=== PATIENT | male | born 1955 | race Caucasian/White ===

== ENCOUNTER → 2019-03-30 | Outpatient (CLI) | payer BC | LOC: HYPER 10:10 | DX: L59.8 Other specified disorders of the skin and subcutaneous tissue related to radiation (principal); M87.88 Other osteonecrosis, other site; C01 Malignant neoplasm of base of tongue; M86.9 Osteomyelitis, unspecified; J38.4 Edema of larynx; Z85.810 Personal history of malignant neoplasm of tongue; Z87.891 Personal history of nicotine dependence ==

== ENCOUNTER → 2019-03-31 | Outpatient (CLI) | payer BC, OTHER | LOC: RAD 08:50 | DX: M86.9 Osteomyelitis, unspecified (principal); L59.9 Disorder of the skin and subcutaneous tissue related to radiation, unspecified; M47.814 Spondylosis without myelopathy or radiculopathy, thoracic region ==

== ENCOUNTER → 2019-04-11 | Outpatient (CLI) | payer BC, OTHER | LOC: HYPER 04-10 08:50 | DX: L59.8 Other specified disorders of the skin and subcutaneous tissue related to radiation (principal); M27.2 Inflammatory conditions of jaws; J38.4 Edema of larynx; M86.9 Osteomyelitis, unspecified; Z85.810 Personal history of malignant neoplasm of tongue; Z87.891 Personal history of nicotine dependence; Z85.89 Personal history of malignant neoplasm of other organs and systems; Y84.2 Radiological procedure and radiotherapy as the cause of abnormal reaction of the patient, or of later complication, without mention of misadventure at the time of the procedure ==

== ENCOUNTER → 2019-04-12 | Outpatient (CLI) | payer BC, OTHER | LOC: HYPER 11:08 | DX: L59.8 Other specified disorders of the skin and subcutaneous tissue related to radiation (principal); M27.2 Inflammatory conditions of jaws; J38.4 Edema of larynx; M87.88 Other osteonecrosis, other site; M86.9 Osteomyelitis, unspecified; Z85.810 Personal history of malignant neoplasm of tongue; Z87.891 Personal history of nicotine dependence; Y84.2 Radiological procedure and radiotherapy as the cause of abnormal reaction of the patient, or of later complication, without mention of misadventure at the time of the procedure ==

== ENCOUNTER → 2019-04-13 | Outpatient (CLI) | payer BC, OTHER | LOC: HYPER 08:05 | DX: L59.8 Other specified disorders of the skin and subcutaneous tissue related to radiation (principal); M27.2 Inflammatory conditions of jaws; M87.9 Osteonecrosis, unspecified; M86.9 Osteomyelitis, unspecified; J38.4 Edema of larynx; Z85.810 Personal history of malignant neoplasm of tongue; Z87.891 Personal history of nicotine dependence; Y84.2 Radiological procedure and radiotherapy as the cause of abnormal reaction of the patient, or of later complication, without mention of misadventure at the time of the procedure ==

== ENCOUNTER → 2019-04-14 | Outpatient (CLI) | payer BC, OTHER | LOC: HYPER 07:59 | DX: L59.8 Other specified disorders of the skin and subcutaneous tissue related to radiation (principal); M27.2 Inflammatory conditions of jaws; M87.9 Osteonecrosis, unspecified; M86.9 Osteomyelitis, unspecified; J38.4 Edema of larynx; Z95.810 Presence of automatic (implantable) cardiac defibrillator; Z85.89 Personal history of malignant neoplasm of other organs and systems; Z87.891 Personal history of nicotine dependence; Y84.2 Radiological procedure and radiotherapy as the cause of abnormal reaction of the patient, or of later complication, without mention of misadventure at the time of the procedure ==

== ENCOUNTER → 2019-04-17 | Outpatient (CLI) | payer BC, OTHER | LOC: HYPER 08:28 | DX: L59.8 Other specified disorders of the skin and subcutaneous tissue related to radiation (principal); M27.2 Inflammatory conditions of jaws; J38.4 Edema of larynx; M87.9 Osteonecrosis, unspecified; M86.9 Osteomyelitis, unspecified; Z85.810 Personal history of malignant neoplasm of tongue; Z87.891 Personal history of nicotine dependence; Y84.2 Radiological procedure and radiotherapy as the cause of abnormal reaction of the patient, or of later complication, without mention of misadventure at the time of the procedure ==

== ENCOUNTER → 2019-04-18 | Outpatient (CLI) | payer BC, OTHER | LOC: HYPER 08:31 | DX: L59.8 Other specified disorders of the skin and subcutaneous tissue related to radiation (principal); M27.2 Inflammatory conditions of jaws; J38.4 Edema of larynx; M86.9 Osteomyelitis, unspecified; M87.9 Osteonecrosis, unspecified; M81.0 Age-related osteoporosis without current pathological fracture; Z85.810 Personal history of malignant neoplasm of tongue; Z87.891 Personal history of nicotine dependence; Y84.2 Radiological procedure and radiotherapy as the cause of abnormal reaction of the patient, or of later complication, without mention of misadventure at the time of the procedure ==

== ENCOUNTER → 2019-04-19 | Outpatient (CLI) | payer BC, OTHER | LOC: HYPER 08:59 | DX: L59.8 Other specified disorders of the skin and subcutaneous tissue related to radiation (principal); M27.2 Inflammatory conditions of jaws; J38.4 Edema of larynx; M87.9 Osteonecrosis, unspecified; M86.9 Osteomyelitis, unspecified; Z85.810 Personal history of malignant neoplasm of tongue; Z87.891 Personal history of nicotine dependence; Y84.2 Radiological procedure and radiotherapy as the cause of abnormal reaction of the patient, or of later complication, without mention of misadventure at the time of the procedure ==

== ENCOUNTER → 2019-04-20 | Outpatient (CLI) | payer BC, OTHER | LOC: HYPER 10:25 | DX: L59.8 Other specified disorders of the skin and subcutaneous tissue related to radiation (principal); M27.2 Inflammatory conditions of jaws; M87.9 Osteonecrosis, unspecified; M86.9 Osteomyelitis, unspecified; J38.4 Edema of larynx; Z85.810 Personal history of malignant neoplasm of tongue; Z85.89 Personal history of malignant neoplasm of other organs and systems; Z87.891 Personal history of nicotine dependence; Y84.2 Radiological procedure and radiotherapy as the cause of abnormal reaction of the patient, or of later complication, without mention of misadventure at the time of the procedure ==

== ENCOUNTER → 2019-04-21 | Outpatient (CLI) | payer BC, OTHER | LOC: HYPER 08:06 | DX: L59.8 Other specified disorders of the skin and subcutaneous tissue related to radiation (principal); M27.2 Inflammatory conditions of jaws; M87.9 Osteonecrosis, unspecified; M86.9 Osteomyelitis, unspecified; J38.4 Edema of larynx; Z85.810 Personal history of malignant neoplasm of tongue; Z85.89 Personal history of malignant neoplasm of other organs and systems; Z87.891 Personal history of nicotine dependence; Y84.2 Radiological procedure and radiotherapy as the cause of abnormal reaction of the patient, or of later complication, without mention of misadventure at the time of the procedure ==

== ENCOUNTER → 2019-04-24 | Outpatient (CLI) | payer BC, OTHER | LOC: HYPER 09:10 | DX: L59.8 Other specified disorders of the skin and subcutaneous tissue related to radiation (principal); M27.2 Inflammatory conditions of jaws; M87.9 Osteonecrosis, unspecified; M86.9 Osteomyelitis, unspecified; J38.4 Edema of larynx; Z85.89 Personal history of malignant neoplasm of other organs and systems; Z85.810 Personal history of malignant neoplasm of tongue; Z87.891 Personal history of nicotine dependence; Y84.2 Radiological procedure and radiotherapy as the cause of abnormal reaction of the patient, or of later complication, without mention of misadventure at the time of the procedure ==

== ENCOUNTER → 2019-04-25 | Outpatient (CLI) | payer BC, OTHER | LOC: HYPER 13:37 | DX: L59.8 Other specified disorders of the skin and subcutaneous tissue related to radiation (principal); M27.2 Inflammatory conditions of jaws; M87.9 Osteonecrosis, unspecified; M86.9 Osteomyelitis, unspecified; J38.4 Edema of larynx; Z85.810 Personal history of malignant neoplasm of tongue; Z85.89 Personal history of malignant neoplasm of other organs and systems; Z87.891 Personal history of nicotine dependence; Y84.2 Radiological procedure and radiotherapy as the cause of abnormal reaction of the patient, or of later complication, without mention of misadventure at the time of the procedure ==

== ENCOUNTER → 2019-04-26 | Outpatient (CLI) | payer BC, OTHER | LOC: HYPER 08:57 | DX: L59.8 Other specified disorders of the skin and subcutaneous tissue related to radiation (principal); M27.2 Inflammatory conditions of jaws; J38.4 Edema of larynx; M86.9 Osteomyelitis, unspecified; M87.9 Osteonecrosis, unspecified; Z85.810 Personal history of malignant neoplasm of tongue; Y84.2 Radiological procedure and radiotherapy as the cause of abnormal reaction of the patient, or of later complication, without mention of misadventure at the time of the procedure; Z87.891 Personal history of nicotine dependence ==

== ENCOUNTER → 2019-04-27 | Outpatient (CLI) | payer BC, OTHER | LOC: HYPER 08:00 | DX: L59.8 Other specified disorders of the skin and subcutaneous tissue related to radiation (principal); M27.2 Inflammatory conditions of jaws; M87.9 Osteonecrosis, unspecified; M86.9 Osteomyelitis, unspecified; J38.4 Edema of larynx; Z85.810 Personal history of malignant neoplasm of tongue; Z85.89 Personal history of malignant neoplasm of other organs and systems; Z87.891 Personal history of nicotine dependence; Y84.2 Radiological procedure and radiotherapy as the cause of abnormal reaction of the patient, or of later complication, without mention of misadventure at the time of the procedure ==

== ENCOUNTER → 2019-04-28 | Outpatient (CLI) | payer BC, OTHER | LOC: HYPER 08:21 | DX: L59.8 Other specified disorders of the skin and subcutaneous tissue related to radiation (principal); M27.2 Inflammatory conditions of jaws; M87.9 Osteonecrosis, unspecified; M86.9 Osteomyelitis, unspecified; J38.4 Edema of larynx; Z85.89 Personal history of malignant neoplasm of other organs and systems; Z85.810 Personal history of malignant neoplasm of tongue; Z87.891 Personal history of nicotine dependence; Y84.2 Radiological procedure and radiotherapy as the cause of abnormal reaction of the patient, or of later complication, without mention of misadventure at the time of the procedure ==

== ENCOUNTER → 2019-05-01 | Outpatient (CLI) | payer BC, OTHER | LOC: HYPER 08:15 | DX: L59.8 Other specified disorders of the skin and subcutaneous tissue related to radiation (principal); M27.2 Inflammatory conditions of jaws; J38.4 Edema of larynx; M86.9 Osteomyelitis, unspecified; M87.9 Osteonecrosis, unspecified; Z85.810 Personal history of malignant neoplasm of tongue; Z87.891 Personal history of nicotine dependence; Y84.2 Radiological procedure and radiotherapy as the cause of abnormal reaction of the patient, or of later complication, without mention of misadventure at the time of the procedure ==

== ENCOUNTER → 2019-05-02 | Outpatient (CLI) | payer BC, OTHER | LOC: HYPER 07:30 | DX: L59.8 Other specified disorders of the skin and subcutaneous tissue related to radiation (principal); M27.2 Inflammatory conditions of jaws; M87.88 Other osteonecrosis, other site; M87.9 Osteonecrosis, unspecified; M86.9 Osteomyelitis, unspecified; J38.4 Edema of larynx; Z85.810 Personal history of malignant neoplasm of tongue; Z87.891 Personal history of nicotine dependence; Z85.89 Personal history of malignant neoplasm of other organs and systems; Y84.2 Radiological procedure and radiotherapy as the cause of abnormal reaction of the patient, or of later complication, without mention of misadventure at the time of the procedure ==

== ENCOUNTER → 2019-05-03 | Outpatient (CLI) | payer BC, OTHER | LOC: HYPER 09:03 | DX: L59.8 Other specified disorders of the skin and subcutaneous tissue related to radiation (principal); M27.2 Inflammatory conditions of jaws; M87.9 Osteonecrosis, unspecified; M86.9 Osteomyelitis, unspecified; J38.4 Edema of larynx; Z87.891 Personal history of nicotine dependence; Z85.810 Personal history of malignant neoplasm of tongue; Z85.89 Personal history of malignant neoplasm of other organs and systems; Y84.2 Radiological procedure and radiotherapy as the cause of abnormal reaction of the patient, or of later complication, without mention of misadventure at the time of the procedure ==

== ENCOUNTER → 2019-05-04 | Outpatient (CLI) | payer BC, OTHER | LOC: HYPER 10:35 | DX: L59.8 Other specified disorders of the skin and subcutaneous tissue related to radiation (principal); M27.2 Inflammatory conditions of jaws; M86.9 Osteomyelitis, unspecified; M87.9 Osteonecrosis, unspecified; J38.4 Edema of larynx; Z85.810 Personal history of malignant neoplasm of tongue; Z87.891 Personal history of nicotine dependence; Z85.89 Personal history of malignant neoplasm of other organs and systems; Y84.2 Radiological procedure and radiotherapy as the cause of abnormal reaction of the patient, or of later complication, without mention of misadventure at the time of the procedure ==

== ENCOUNTER → 2019-05-05 | Outpatient (CLI) | payer BC, OTHER | LOC: HYPER 07:30 | DX: L59.8 Other specified disorders of the skin and subcutaneous tissue related to radiation (principal); M27.2 Inflammatory conditions of jaws; M87.9 Osteonecrosis, unspecified; M86.9 Osteomyelitis, unspecified; J38.4 Edema of larynx; Z85.810 Personal history of malignant neoplasm of tongue; Z87.891 Personal history of nicotine dependence; Z85.89 Personal history of malignant neoplasm of other organs and systems; Y84.2 Radiological procedure and radiotherapy as the cause of abnormal reaction of the patient, or of later complication, without mention of misadventure at the time of the procedure ==

== ENCOUNTER → 2019-05-08 | Outpatient (CLI) | payer BC, OTHER | LOC: HYPER 08:12 | DX: L59.8 Other specified disorders of the skin and subcutaneous tissue related to radiation (principal); M27.2 Inflammatory conditions of jaws; M87.9 Osteonecrosis, unspecified; M86.9 Osteomyelitis, unspecified; J38.4 Edema of larynx; Z87.891 Personal history of nicotine dependence; Z85.810 Personal history of malignant neoplasm of tongue; Z85.89 Personal history of malignant neoplasm of other organs and systems ==

== ENCOUNTER → 2019-05-09 | Outpatient (CLI) | payer BC, OTHER | LOC: HYPER 09:08 | DX: L59.8 Other specified disorders of the skin and subcutaneous tissue related to radiation (principal); M27.2 Inflammatory conditions of jaws; M87.9 Osteonecrosis, unspecified; M86.9 Osteomyelitis, unspecified; J38.4 Edema of larynx; Z87.891 Personal history of nicotine dependence; Z85.89 Personal history of malignant neoplasm of other organs and systems; Z85.810 Personal history of malignant neoplasm of tongue; Y84.2 Radiological procedure and radiotherapy as the cause of abnormal reaction of the patient, or of later complication, without mention of misadventure at the time of the procedure ==

== ENCOUNTER → 2019-05-11 | Outpatient (CLI) | payer BC, OTHER | LOC: HYPER 08:04 | DX: L59.8 Other specified disorders of the skin and subcutaneous tissue related to radiation (principal); M27.2 Inflammatory conditions of jaws; M87.9 Osteonecrosis, unspecified; M86.9 Osteomyelitis, unspecified; J38.4 Edema of larynx; Z87.891 Personal history of nicotine dependence; Z85.810 Personal history of malignant neoplasm of tongue; Z85.89 Personal history of malignant neoplasm of other organs and systems; Y84.2 Radiological procedure and radiotherapy as the cause of abnormal reaction of the patient, or of later complication, without mention of misadventure at the time of the procedure ==

== ENCOUNTER → 2019-05-12 | Outpatient (CLI) | payer BC, OTHER | LOC: HYPER 08:18 | DX: L59.8 Other specified disorders of the skin and subcutaneous tissue related to radiation (principal); M27.2 Inflammatory conditions of jaws; M87.9 Osteonecrosis, unspecified; M86.9 Osteomyelitis, unspecified; J38.4 Edema of larynx; Z85.810 Personal history of malignant neoplasm of tongue; Z87.891 Personal history of nicotine dependence; Z85.89 Personal history of malignant neoplasm of other organs and systems; Y84.2 Radiological procedure and radiotherapy as the cause of abnormal reaction of the patient, or of later complication, without mention of misadventure at the time of the procedure ==

== ENCOUNTER → 2019-05-15 | Outpatient (CLI) | payer BC, OTHER | LOC: HYPER 08:21 | DX: L59.8 Other specified disorders of the skin and subcutaneous tissue related to radiation (principal); M27.2 Inflammatory conditions of jaws; M87.9 Osteonecrosis, unspecified; M86.9 Osteomyelitis, unspecified; J38.4 Edema of larynx; M87.88 Other osteonecrosis, other site; Z85.810 Personal history of malignant neoplasm of tongue; Z87.891 Personal history of nicotine dependence; Y84.2 Radiological procedure and radiotherapy as the cause of abnormal reaction of the patient, or of later complication, without mention of misadventure at the time of the procedure ==

== ENCOUNTER → 2019-05-16 | Outpatient (CLI) | payer BC, OTHER | LOC: HYPER 08:54 | DX: L59.8 Other specified disorders of the skin and subcutaneous tissue related to radiation (principal); M27.2 Inflammatory conditions of jaws; J38.4 Edema of larynx; M86.9 Osteomyelitis, unspecified; M87.9 Osteonecrosis, unspecified; M87.88 Other osteonecrosis, other site; Z85.810 Personal history of malignant neoplasm of tongue; Z87.891 Personal history of nicotine dependence; Y84.2 Radiological procedure and radiotherapy as the cause of abnormal reaction of the patient, or of later complication, without mention of misadventure at the time of the procedure ==

== ENCOUNTER → 2019-05-17 | Outpatient (CLI) | payer BC, OTHER | LOC: HYPER 08:25 | DX: L59.8 Other specified disorders of the skin and subcutaneous tissue related to radiation (principal); M27.2 Inflammatory conditions of jaws; J38.4 Edema of larynx; M87.9 Osteonecrosis, unspecified; M86.9 Osteomyelitis, unspecified; Z85.810 Personal history of malignant neoplasm of tongue; Z85.89 Personal history of malignant neoplasm of other organs and systems; Z87.891 Personal history of nicotine dependence; Y84.2 Radiological procedure and radiotherapy as the cause of abnormal reaction of the patient, or of later complication, without mention of misadventure at the time of the procedure ==

== ENCOUNTER → 2019-05-18 | Outpatient (CLI) | payer BC, OTHER | LOC: HYPER 08:36 | DX: L59.8 Other specified disorders of the skin and subcutaneous tissue related to radiation (principal); M27.2 Inflammatory conditions of jaws; M87.9 Osteonecrosis, unspecified; M86.9 Osteomyelitis, unspecified; J38.4 Edema of larynx; Z85.810 Personal history of malignant neoplasm of tongue; Z87.891 Personal history of nicotine dependence; Z85.89 Personal history of malignant neoplasm of other organs and systems; Y84.2 Radiological procedure and radiotherapy as the cause of abnormal reaction of the patient, or of later complication, without mention of misadventure at the time of the procedure ==

== ENCOUNTER → 2019-05-19 | Outpatient (CLI) | payer BC, OTHER | LOC: HYPER 09:41 | DX: L59.8 Other specified disorders of the skin and subcutaneous tissue related to radiation (principal); M27.2 Inflammatory conditions of jaws; M87.9 Osteonecrosis, unspecified; M86.9 Osteomyelitis, unspecified; J38.4 Edema of larynx; Z87.891 Personal history of nicotine dependence; Z85.810 Personal history of malignant neoplasm of tongue; Z85.89 Personal history of malignant neoplasm of other organs and systems; Y84.2 Radiological procedure and radiotherapy as the cause of abnormal reaction of the patient, or of later complication, without mention of misadventure at the time of the procedure ==

== ENCOUNTER → 2019-05-22 | Outpatient (CLI) | payer BC, OTHER | LOC: HYPER 08:49 | DX: L59.8 Other specified disorders of the skin and subcutaneous tissue related to radiation (principal); M27.2 Inflammatory conditions of jaws; M87.9 Osteonecrosis, unspecified; M86.9 Osteomyelitis, unspecified; J38.4 Edema of larynx; Z85.810 Personal history of malignant neoplasm of tongue; Z87.891 Personal history of nicotine dependence; Y84.2 Radiological procedure and radiotherapy as the cause of abnormal reaction of the patient, or of later complication, without mention of misadventure at the time of the procedure ==

== ENCOUNTER → 2019-05-23 | Outpatient (CLI) | payer BC, OTHER | LOC: HYPER 07:30 | DX: L59.8 Other specified disorders of the skin and subcutaneous tissue related to radiation (principal); M27.2 Inflammatory conditions of jaws; J38.4 Edema of larynx; M86.9 Osteomyelitis, unspecified; M87.88 Other osteonecrosis, other site; Z85.89 Personal history of malignant neoplasm of other organs and systems; Z87.891 Personal history of nicotine dependence; Y84.2 Radiological procedure and radiotherapy as the cause of abnormal reaction of the patient, or of later complication, without mention of misadventure at the time of the procedure ==

== ENCOUNTER → 2019-05-24 | Outpatient (CLI) | payer BC, OTHER | LOC: HYPER 09:36 | DX: L59.8 Other specified disorders of the skin and subcutaneous tissue related to radiation (principal); M27.2 Inflammatory conditions of jaws; J38.4 Edema of larynx; M87.88 Other osteonecrosis, other site; M86.9 Osteomyelitis, unspecified; Z85.810 Personal history of malignant neoplasm of tongue; Z85.89 Personal history of malignant neoplasm of other organs and systems; Z87.891 Personal history of nicotine dependence; Y84.2 Radiological procedure and radiotherapy as the cause of abnormal reaction of the patient, or of later complication, without mention of misadventure at the time of the procedure ==

== ENCOUNTER → 2019-05-25 | Outpatient (CLI) | payer BC, OTHER | LOC: HYPER 10:17 | DX: L59.8 Other specified disorders of the skin and subcutaneous tissue related to radiation (principal); M27.2 Inflammatory conditions of jaws; J38.4 Edema of larynx; M86.9 Osteomyelitis, unspecified; M87.88 Other osteonecrosis, other site; Z85.810 Personal history of malignant neoplasm of tongue; Z87.891 Personal history of nicotine dependence; Y84.2 Radiological procedure and radiotherapy as the cause of abnormal reaction of the patient, or of later complication, without mention of misadventure at the time of the procedure ==

== ENCOUNTER → 2019-05-26 | Outpatient (CLI) | payer BC, OTHER | LOC: HYPER 08:53 | DX: L59.8 Other specified disorders of the skin and subcutaneous tissue related to radiation (principal); M27.2 Inflammatory conditions of jaws; J38.4 Edema of larynx; M86.9 Osteomyelitis, unspecified; M87.88 Other osteonecrosis, other site; Z85.810 Personal history of malignant neoplasm of tongue; Z87.891 Personal history of nicotine dependence; Y84.2 Radiological procedure and radiotherapy as the cause of abnormal reaction of the patient, or of later complication, without mention of misadventure at the time of the procedure ==

== ENCOUNTER → 2019-05-29 | Outpatient (CLI) | payer BC, OTHER | LOC: HYPER 08:09 | DX: L59.8 Other specified disorders of the skin and subcutaneous tissue related to radiation (principal); J38.4 Edema of larynx; M87.88 Other osteonecrosis, other site; M86.9 Osteomyelitis, unspecified; Z85.810 Personal history of malignant neoplasm of tongue; Z85.89 Personal history of malignant neoplasm of other organs and systems; Z87.891 Personal history of nicotine dependence; Y84.2 Radiological procedure and radiotherapy as the cause of abnormal reaction of the patient, or of later complication, without mention of misadventure at the time of the procedure ==

== ENCOUNTER → 2019-05-30 | Outpatient (CLI) | payer BC, OTHER | LOC: HYPER 08:13 | DX: L59.8 Other specified disorders of the skin and subcutaneous tissue related to radiation (principal); M27.2 Inflammatory conditions of jaws; M87.9 Osteonecrosis, unspecified; M86.9 Osteomyelitis, unspecified; Z85.810 Personal history of malignant neoplasm of tongue; Z87.891 Personal history of nicotine dependence; Z85.828 Personal history of other malignant neoplasm of skin; Y84.2 Radiological procedure and radiotherapy as the cause of abnormal reaction of the patient, or of later complication, without mention of misadventure at the time of the procedure ==

== ENCOUNTER → 2019-05-31 | Outpatient (CLI) | payer BC, OTHER | LOC: HYPER 08:42 | DX: L59.8 Other specified disorders of the skin and subcutaneous tissue related to radiation (principal); M27.2 Inflammatory conditions of jaws; J38.4 Edema of larynx; M87.88 Other osteonecrosis, other site; M86.9 Osteomyelitis, unspecified; Z85.810 Personal history of malignant neoplasm of tongue; Z87.891 Personal history of nicotine dependence; Y84.2 Radiological procedure and radiotherapy as the cause of abnormal reaction of the patient, or of later complication, without mention of misadventure at the time of the procedure ==

== ENCOUNTER → 2019-06-01 | Outpatient (CLI) | payer BC, OTHER | LOC: HYPER 11:13 | DX: L59.8 Other specified disorders of the skin and subcutaneous tissue related to radiation (principal); M27.2 Inflammatory conditions of jaws; J38.4 Edema of larynx; M86.9 Osteomyelitis, unspecified; M87.88 Other osteonecrosis, other site; Z87.891 Personal history of nicotine dependence; Z85.810 Personal history of malignant neoplasm of tongue; Y84.2 Radiological procedure and radiotherapy as the cause of abnormal reaction of the patient, or of later complication, without mention of misadventure at the time of the procedure ==

== ENCOUNTER → 2019-06-02 | Outpatient (CLI) | payer BC, OTHER | LOC: HYPER 14:42 | DX: L59.8 Other specified disorders of the skin and subcutaneous tissue related to radiation (principal); M27.2 Inflammatory conditions of jaws; J38.4 Edema of larynx; M86.9 Osteomyelitis, unspecified; M87.88 Other osteonecrosis, other site; Z85.810 Personal history of malignant neoplasm of tongue; Z87.891 Personal history of nicotine dependence; Y84.2 Radiological procedure and radiotherapy as the cause of abnormal reaction of the patient, or of later complication, without mention of misadventure at the time of the procedure ==

== ENCOUNTER → 2019-06-05 | Outpatient (CLI) | payer BC, OTHER | LOC: HYPER 08:36 | DX: L59.8 Other specified disorders of the skin and subcutaneous tissue related to radiation (principal); M27.2 Inflammatory conditions of jaws; J38.4 Edema of larynx; M86.9 Osteomyelitis, unspecified; M87.88 Other osteonecrosis, other site; Z85.810 Personal history of malignant neoplasm of tongue; Z87.891 Personal history of nicotine dependence; Y84.2 Radiological procedure and radiotherapy as the cause of abnormal reaction of the patient, or of later complication, without mention of misadventure at the time of the procedure ==